=== PATIENT | female | born 1930 | race Caucasian/White ===

== ENCOUNTER 2016-12-18 10:02 | Inpatient (IN) | payer MEDICARE ==
--- NOTE | 2016-12-18 10:54 | EDM.PDOC ---
ED HPI GENERAL MEDICAL PROBLEM - General Chief Complaint: Respiratory Problem Stated Complaint: SHORTNESS OF BREATH Time Seen by Provider: 12/18/16 10:54 Source of Information: Reports: Patient History Limitations: Reports: No Limitations - History of Present Illness INITIAL COMMENTS - FREE TEXT/NARRATIVE: pt arrived appearing very pale and sob. She had a difficult nite and couldn,t rest because of the sob. She has not had chest pain. She has a history of recurrent pneumonia and does not always spike a temp when she has the pneumonia. Onset: Gradual, Other (over the last 2 days. ) Duration: Hour(s): Location: Reports: Chest Associated Symptoms: Reports: Cough, Shortness of Breath, Weakness Denies Pain Score (Numeric/FACES): 0 - Related Data Allergies Allergy/AdvReac Type Severity Reaction Status Date / Time atorvastatin [From Lipitor] Allergy Muscle Verified 12/18/16 10:16 Aches dorzolamide [From Cosopt] Allergy Rash Verified 12/18/16 10:14 flurbiprofen Allergy Cannot Verified 12/18/16 10:16 Remember timolol [From Cosopt] Allergy Rash Verified 12/18/16 10:14 Home Meds: Home Meds Acetaminophen 500 mg PO Q6H PRN 12/18/16 [History] Acetaminophen with Codeine [Tylenol with Codeine #3 Tablet] 1 each PO QID PRN [History] Albuterol [Proventil HFA] 2 puff INH Q4H PRN 12/18/16 [History] Amitriptyline HCl 100 mg PO BEDTIME 12/18/16 [History] Antiox#10/Om3/DHA/EPA/Lut/Zeax [I-Caps with Lutein-Rupert 3 SFG] 2 each PO BID [History] Brimonidine [Alphagan 0.2% Ophth Soln] 1 drop EYELF BID 12/18/16 [History] Ca Carb & Gluc/Mag Ox & Gluc [Calcium Magnesium Caplet] 1 tab PO DAILY 12/18/16 [History] Carboxymethylcellulos/Glycerin [Refresh Optive Gel Eye Drops] 1 drop OP DAILY PRN 12/18/16 [History] Cholecalciferol (Vitamin D3) [Vitamin D3] 2,000 unit PO DAILY 12/18/16 [History] Docusate Sodium 300 mg PO DAILY 12/18/16 [History] Furosemide 20 mg PO DAILY 12/18/16 [History] Gluc Tan/Msm/Magnesium/Vit C [Glucosamine Complex-MSM] 1 each PO DAILY 12/18/16 [ History] Hypromellose [Pure & Gentle Eye Drops] 1 drop OP QID PRN 12/18/16 [History] Latanoprost [Xalatan 0.005% Ophth Soln] 1 drop EYELF BEDTIME 12/18/16 [History] Levothyroxine 75 mcg PO ACBREAKFAST 12/18/16 [History] Lidocaine 4% [Xylocaine 4% Top Soln] 1 applic TOP Q8H PRN 12/18/16 [History] Lisinopril 10 mg PO DAILY 12/18/16 [History] Metoprolol Tartrate 25 mg PO BID 12/18/16 [History] Truong/Polymyx B Sulf/Dexameth [Nqzdxj-Agrpq-Rofndrw Eye Ointm] 1 applic OP BEDTIME 12/18/16 [History] Omeprazole 40 mg PO DAILY 12/18/16 [History] Salmeterol Xinafoate [Serevent Diskus] 1 puff INH BID 12/18/16 [History] Timolol Maleate [Timoptic 0.25%] 1 drop EYELF BID 12/18/16 [History] Warfarin [Coumadin] 2.5 mg PO ASDIRECTED 12/18/16 [History] Warfarin [Coumadin] 5 mg PO ASDIRECTED 12/18/16 [History] hydrOXYzine HCl [Atarax] 25 mg PO Q8H 12/18/16 [History] Past Medical History HEENT History: Reports: Impaired Vision, Other (See Below) 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 Cardiovascular History: Reports: Afib, CAD, Heart Failure, Hypertension, MD Respiratory History: Reports: COPD Gastrointestinal History: Reports: GERD, Other (See Below) Other Gastrointestinal History: umbilica hernia Genitourinary History: Reports: Chronic Renal Insuffiency, UTI, Recurrent [employer] History: Reports: , Spontaneous Musculoskeletal History: Reports: Osteoarthritis Neurological History: Reports: TIA Psychiatric History: Reports: Panic Attack Endocrine/Metabolic History: Reports: Hypothyroidism - Infectious Disease History Infectious Disease History: Reports: Measles, Shingles - Past Surgical History HEENT Surgical History: Reports: Cataract Surgery GI Surgical History: Reports: Appendectomy Musculoskeletal Surgical History: Reports: Hip Replacement Social & Family History - Tobacco Use Smoking Status *Q: Former Smoker Years of Tobacco use: 50 Packs/Tins Daily: 1 Used Tobacco, but Quit: Yes Month Tobacco Last Used: August Second Hand Smoke Exposure: No - Caffeine Use Caffeine Use: Reports: Coffee - Recreational Drug Use Recreational Drug Use: No ED ROS GENERAL - Review of Systems Review Of Systems: See Below Constitutional: Reports: Malaise, Fatigue, Other ( sob) HEENT: Reports: No Symptoms Respiratory: Reports: Shortness of Breath Cardiovascular: Reports: No Symptoms Endocrine: Reports: No Symptoms GI/Abdominal: Reports: No Symptoms : Reports: No Symptoms Musculoskeletal: Reports: No Symptoms Skin: Reports: No Symptoms ED EXAM, GENERAL - Physical Exam Exam: See Below Free Text/Narrative:: pt arrived with increased sob and feeling very weak. Exam Limited By: No Limitations General Appearance: Alert, Moderate Distress Ears: Normal TMs Nose: Normal Inspection Throat/Mouth: Normal Inspection Head: Atraumatic Neck: Normal Inspection Respiratory/Chest: Decreased Breath Sounds, Rales Cardiovascular: Irregularly Irregular, Other (history of atrial fib) GI/Abdominal: Soft, Other (pt seemes a little distended. She did take a laxative today but she has not had a bm since or Friday. She may have some fluid in the abdoman. She never swells in her ankles. ) (Female) Exam: Deferred Rectal (Female) Exam: Deferred Back Exam: Normal Inspection Extremities: Other ( varicosities but no edema. ) Neurological: Alert, Oriented, Normal Cognition Course - Vital Signs Last Recorded V/S: Last Vital Signs Temp 36.6 C 12/21/16 07:43 Pulse 72 12/21/16 07:43 Resp 16 12/21/16 07:43 BP 110/45 L 12/21/16 07:43 Pulse Ox 97 12/21/16 07:43 - Orders/Labs/Meds Orders: Medication Orders Acetaminophen (Tylenol) 650 mg PO Q4H PRN PRN Reason: Pain (Mild 1-3)/fever Albuterol (Proventil Neb Soln) 2.5 mg NEB Q4H PRN PRN Reason: Shortness Of Breath/wheezing Albuterol/Ipratropium (Duoneb 3.0-0.5 Mg/3 Ml) 3 ml NEB QIDRT [facility] Last Admin: 12/21/16 07:22 Dose: 3 ml Admin: 12/20/16 20:18 Dose: 3 ml Admin: 12/20/16 14:42 Dose: 3 ml Admin: 12/20/16 12:22 Dose: 3 ml Admin: 12/20/16 07:23 Dose: 3 ml Admin: 12/19/16 21:24 Dose: 3 ml Admin: 12/19/16 14:21 Dose: 3 ml Admin: 12/19/16 10:59 Dose: 3 ml Admin: 12/19/16 07:25 Dose: 3 ml Admin: 12/18/16 21:17 Dose: 3 ml Admin: 12/18/16 16:40 Dose: 3 ml Amitriptyline HCl (Elavil) 100 mg PO BEDTIME [facility] Last Admin: 12/20/16 20:18 Dose: 100 mg Admin: 12/19/16 21:24 Dose: 100 mg Admin: 12/18/16 21:19 Dose: 100 mg Amoxicillin/Clavulanate Potassium (Augmentin 875 Mg/125 Mg) 1 tab PO BID [facility] Last Admin: 12/20/16 20:17 Dose: 1 tab Admin: 12/20/16 12:48 Dose: 1 tab Arformoterol Tartrate (Brovana) 15 mcg INH BIDRT [facility] Last Admin: 12/21/16 07:22 Dose: 15 mcg Admin: 12/20/16 20:17 Dose: 15 mcg Admin: 12/20/16 07:24 Dose: 15 mcg Admin: 12/19/16 21:24 Dose: 15 mcg Admin: 12/19/16 07:25 Dose: 15 mcg Admin: 12/18/16 21:19 Dose: 15 mcg Artificial Tears (Natural Balance Tears) 0 ml EYEBOTH QID PRN PRN Reason: Dry Eyes Brimonidine Tartrate (Alphagan 0.2% Ophth Soln) 0 ml EYELF BID [facility] Last Admin: 12/20/16 20:17 Dose: 1 drop Docusate Sodium (Colace) 300 mg PO DAILY [facility] Last Admin: 12/20/16 09:10 Dose: 300 mg Admin: 12/19/16 08:50 Dose: 300 mg Furosemide (Lasix) 40 mg PO DAILY [facility] Last Admin: 12/20/16 09:10 Dose: 40 mg Admin: 12/19/16 11:29 Dose: 40 mg Hydroxyzine HCl (Atarax) 25 mg PO Q8H [facility] Last Admin: 12/20/16 23:41 Dose: 25 mg Admin: 12/20/16 17:36 Dose: 25 mg Admin: 12/20/16 07:30 Dose: 25 mg Admin: 12/20/16 00:38 Dose: 25 mg Admin: 12/19/16 16:00 Dose: 25 mg Admin: 12/19/16 08:49 Dose: 25 mg Admin: 12/18/16 23:11 Dose: 25 mg Admin: 12/18/16 15:56 Dose: 25 mg Lactobacillus Rhamnosus (Culturelle) 2 cap PO BID [facility] Last Admin: 12/20/16 20:18 Dose: 2 cap Admin: 12/20/16 12:48 Dose: 2 cap Latanoprost (Xalatan 0.005% Ophth Soln) 0 ml EYELF BEDTIME [facility] Last Admin: 12/20/16 20:19 Dose: 1 drop Admin: 12/19/16 21:42 Dose: 1 drop Admin: 12/18/16 21:33 Dose: 1 drop Levothyroxine Sodium (Levothyroxine) 75 mcg PO ACBREAKFAST [facility] Last Admin: 12/20/16 07:30 Dose: 75 mcg Admin: 12/19/16 07:17 Dose: 75 mcg Lisinopril (Prinivil) 10 mg PO DAILY [facility] Last Admin: 12/20/16 09:11 Dose: 10 mg Admin: 12/19/16 08:51 Dose: 10 mg Magnesium Hydroxide (Milk Of Magnesia) 30 ml PO Q12H PRN PRN Reason: Constipation Metoprolol Tartrate (Lopressor) 25 mg PO BID [facility] Last Admin: 12/20/16 20:19 Dose: 25 mg Admin: 12/20/16 09:10 Dose: 25 mg Admin: 12/19/16 21:24 Dose: 25 mg Admin: 12/19/16 08:51 Dose: 25 mg Admin: 12/18/16 21:27 Dose: 25 mg Neomycin/Polymyxin/Dexamethasone (Maxitrol Ophth Oint) 0 gm EYEBOTH BEDTIME [facility] Last Admin: 09/22/17 20:18 Dose: 1 applic Admin: 12/19/16 21:27 Dose: 1 applic Admin: 12/18/16 21:36 Dose: 1 applic Ondansetron HCl (Zofran) 4 mg IV Q4H PRN PRN Reason: Nausea/Vomiting Oxycodone HCl (Oxycodone) 5 mg PO Q4H PRN PRN Reason: Pain (moderate 4-6) Pantoprazole Sodium (Protonix) 40 mg PO ACBREAKFAST [facility] Last Admin: 12/20/16 07:30 Dose: 40 mg Admin: 12/19/16 07:17 Dose: 40 mg Polyethylene Glycol (Miralax) 17 gm PO DAILY PRN PRN Reason: Constipation Sodium Chloride (Saline Flush) 10 ml FLUSH ASDIRECTED PRN PRN Reason: Keep Vein Open Timolol Maleate (Timoptic 0.25% Ophth Soln) 0 ml EYELF BID [facility] Last Admin: 12/20/16 20:18 Dose: 1 drop Admin: 12/20/16 09:11 Dose: 1 drop Admin: 12/19/16 21:43 Dose: 1 drop Admin: 12/19/16 08:51 Dose: 1 drop Admin: 12/18/16 21:24 Dose: 1 drop Labs: Laboratory Tests 12/18/16 12/18/16 12/18/16 Range/Units 10:58 10:59 10:59 WBC 7.3 (4.5-11.0) K/uL RBC 3.52 (3.30-5.50) M/uL Hgb 10.5 L (12.0-15.0) g/dL Hct 33.1 L (36.0-48.0) % MCV 94 (80-98) fL MCH 30 (27-31) pg MCHC 32 (32-36) % Plt Count 264 (150-400) K/uL Neut % (Auto) 67 H (36-66) % Lymph % (Auto) 17 L (24-44) % Ward % (Auto) 10 H (2-6) % Eos % (Auto) 6 H (2-4) % Baso % (Auto) 1 (0-1) % PT (9.5-12.0) sec INR (0.80-1.20) Sodium 139 L (140-148) mmol/L Potassium 3.9 (3.6-5.2) mmol/L Chloride 100 (100-108) mmol/L Carbon Dioxide 28 (21-32) mmol/L Anion Gap 14.9 H (5.0-14.0) mmol/L BUN 37 H (7-18) mg/dL Creatinine 1.8 H (0.6-1.0) mg/dL Est Cr Clr Drug Dosing 17.09 mL/min Estimated GFR (MDRD) 27 L (>60) Glucose 124 H (74-106) mg/dL Lactic Acid (0.4-2.0) mmol/L Calcium 8.6 (8.5-10.1) mg/dL Iron 50 (50-170) ug/dL TIBC 248 L (250-450) ug/dl % Saturation 20 (20-55) % Total Bilirubin 0.8 (0.2-1.0) mg/dL AST 22 (15-37) U/L ALT 29 (12-78) U/L Alkaline Phosphatase 78 (46-116) U/L Troponin I (0.000-0.056) ng/mL C-Reactive Protein (0.0-0.3) mg/dL NT-Pro-B Natriuret Pep 32510 H (5-450) pg/mL Total Protein 7.6 (6.4-8.2) g/dL Albumin 3.2 L (3.4-5.0) g/dL Globulin 4.4 H (2.3-3.5) g/dL Albumin/Globulin Ratio 0.7 L (1.2-2.2) Urine Color Urine Appearance Urine pH (4.5-8.0) Ur Specific [place] (1.008-1.030) Urine Protein (NEGATIVE) mg/dL Urine Glucose (UA) (NEGATIVE) mg/dL Urine Ketones (NEGATIVE) mg/dL Urine Occult Blood (NEGATIVE) Urine Nitrite (NEGATIVE) Urine Bilirubin (NEGATIVE) Urine Urobilinogen (NORMAL) mg/dL Ur Leukocyte Esterase (NEGATIVE) Urine RBC (0-5) Urine WBC (0-5) Ur Epithelial Cells Amorphous Sediment Urine Bacteria Urine Mucus 12/18/16 12/18/16 12/18/16 Range/Units 10:59 11:18 11:24 WBC (4.5-11.0) K/uL RBC (3.30-5.50) M/uL Hgb (12.0-15.0) g/dL Hct (36.0-48.0) % MCV (80-98) fL MCH (27-31) pg MCHC (32-36) % Plt Count (150-400) K/uL Neut % (Auto) (36-66) % Lymph % (Auto) (24-44) % Ward % (Auto) (2-6) % Eos % (Auto) (2-4) % Baso % (Auto) (0-1) % PT 22.7 H (9.5-12.0) sec INR 2.06 H (0.80-1.20) Sodium (140-148) mmol/L Potassium (3.6-5.2) mmol/L Chloride (100-108) mmol/L Carbon Dioxide (21-32) mmol/L Anion Gap (5.0-14.0) mmol/L BUN (7-18) mg/dL Creatinine (0.6-1.0) mg/dL Est Cr Clr Drug Dosing mL/min Estimated GFR (MDRD) (>60) Glucose (74-106) mg/dL Lactic Acid (0.4-2.0) mmol/L Calcium (8.5-10.1) mg/dL Iron (50-170) ug/dL TIBC (250-450) ug/dl % Saturation (20-55) % Total Bilirubin (0.2-1.0) mg/dL AST (15-37) U/L ALT (12-78) U/L Alkaline Phosphatase (46-116) U/L Troponin I (0.000-0.056) ng/mL C-Reactive Protein 9.29 H (0.0-0.3) mg/dL NT-Pro-B Natriuret Pep (5-450) pg/mL Total Protein (6.4-8.2) g/dL Albumin (3.4-5.0) g/dL Globulin (2.3-3.5) g/dL Albumin/Globulin Ratio (1.2-2.2) Urine Color Yellow Urine Appearance Cloudy Urine pH 6.0 (4.5-8.0) Ur Specific [place] 1.010 (1.008-1.030) Urine Protein Negative (NEGATIVE) mg/dL Urine Glucose (UA) Normal (NEGATIVE) mg/dL Urine Ketones Negative (NEGATIVE) mg/dL Urine Occult Blood Negative (NEGATIVE) Urine Nitrite Negative (NEGATIVE) Urine Bilirubin Negative (NEGATIVE) Urine Urobilinogen Normal (NORMAL) mg/dL Ur Leukocyte Esterase Small (NEGATIVE) Urine RBC 0-5 (0-5) Urine WBC 10-20 H (0-5) Ur Epithelial Cells Rare Amorphous Sediment Not seen Urine Bacteria Many Urine Mucus Not seen 12/18/16 12/18/16 Range/Units 11:50 12:24 WBC (4.5-11.0) K/uL RBC (3.30-5.50) M/uL Hgb (12.0-15.0) g/dL Hct (36.0-48.0) % MCV (80-98) fL MCH (27-31) pg MCHC (32-36) % Plt Count (150-400) K/uL Neut % (Auto) (36-66) % Lymph % (Auto) (24-44) % Ward % (Auto) (2-6) % Eos % (Auto) (2-4) % Baso % (Auto) (0-1) % PT (9.5-12.0) sec INR (0.80-1.20) Sodium (140-148) mmol/L Potassium (3.6-5.2) mmol/L Chloride (100-108) mmol/L Carbon Dioxide (21-32) mmol/L Anion Gap (5.0-14.0) mmol/L BUN (7-18) mg/dL Creatinine (0.6-1.0) mg/dL Est Cr Clr Drug Dosing mL/min Estimated GFR (MDRD) (>60) Glucose (74-106) mg/dL Lactic Acid 1.4 (0.4-2.0) mmol/L Calcium (8.5-10.1) mg/dL Iron (50-170) ug/dL TIBC (250-450) ug/dl % Saturation (20-55) % Total Bilirubin (0.2-1.0) mg/dL AST (15-37) U/L ALT (12-78) U/L Alkaline Phosphatase (46-116) U/L Troponin I < 0.017 (0.000-0.056) ng/mL C-Reactive Protein (0.0-0.3) mg/dL NT-Pro-B Natriuret Pep (5-450) pg/mL Total Protein (6.4-8.2) g/dL Albumin (3.4-5.0) g/dL Globulin (2.3-3.5) g/dL Albumin/Globulin Ratio (1.2-2.2) Urine Color Urine Appearance Urine pH (4.5-8.0) Ur Specific [place] (1.008-1.030) Urine Protein (NEGATIVE) mg/dL Urine Glucose (UA) (NEGATIVE) mg/dL Urine Ketones (NEGATIVE) mg/dL Urine Occult Blood (NEGATIVE) Urine Nitrite (NEGATIVE) Urine Bilirubin (NEGATIVE) Urine Urobilinogen (NORMAL) mg/dL Ur Leukocyte Esterase (NEGATIVE) Urine RBC (0-5) Urine WBC (0-5) Ur Epithelial Cells Amorphous Sediment Urine Bacteria Urine Mucus Meds: Medications Generic Name Dose Route Start Last Admin Trade Name Freq PRN Reason Stop Dose Admin Acetaminophen 650 mg 12/18/16 15:07 Tylenol PO Q4H PRN Pain (Mild 1-3)/fever Albuterol 2.5 mg 12/18/16 15:07 Proventil Neb Soln NEB Q4H PRN Shortness Of Breath/wheezing Albuterol/Ipratropium 3 ml 12/18/16 16:00 12/21/16 07:22 Duoneb 3.0-0.5 Mg/3 Ml NEB 3 ml QIDRT JOSE CARLOS Administration Amitriptyline HCl 100 mg 12/18/16 21:00 12/20/16 20:18 Elavil PO 100 mg BEDTIME JOSE CARLOS Administration Amoxicillin/Clavulanate Potassium 1 tab 12/20/16 10:45 12/20/16 20:17 Augmentin 875 Mg/125 Mg PO 1 tab BID JOSE CARLOS Administration Arformoterol Tartrate 15 mcg 12/18/16 21:00 12/21/16 07:22 Brovana INH 15 mcg BIDRT JOSE CARLOS Administration Artificial Tears 0 ml 12/18/16 15:07 Natural Balance Tears EYEBOTH QID PRN Dry Eyes Brimonidine Tartrate 0 ml 12/20/16 21:00 12/20/16 20:17 Alphagan 0.2% Ophth Soln EYELF 1 drop BID JOSE CARLOS Administration Docusate Sodium 300 mg 12/19/16 09:00 12/20/16 09:10 Colace PO 300 mg DAILY JOSE CARLOS Administration Furosemide 40 mg 12/19/16 11:00 12/20/16 09:10 Lasix PO 40 mg DAILY JOSE CARLOS Administration Hydroxyzine HCl 25 mg 12/18/16 16:00 12/20/16 23:41 Atarax PO 25 mg Q8H JOSE CARLOS Administration Lactobacillus Rhamnosus 2 cap 12/20/16 10:45 12/20/16 20:18 Culturelle PO 2 cap BID JOSE CARLOS Administration Latanoprost 0 ml 12/18/16 21:00 12/20/16 20:19 Xalatan 0.005% Ophth Soln EYELF 1 drop BEDTIME JOSE CARLOS Administration Levothyroxine Sodium 75 mcg 12/19/16 07:30 12/20/16 07:30 Levothyroxine PO 75 mcg ACBREAKFAST JOSE CARLOS Administration Lisinopril 10 mg 12/19/16 09:00 12/20/16 09:11 Prinivil PO 10 mg DAILY JOSE CARLOS Administration Magnesium Hydroxide 30 ml 12/18/16 15:07 Milk Of Magnesia PO Q12H PRN Constipation Metoprolol Tartrate 25 mg 12/18/16 21:00 12/20/16 20:19 Lopressor PO 25 mg BID JOSE CARLOS Administration Neomycin/Polymyxin/Dexamethasone 0 gm 12/18/16 21:00 12/20/16 20:18 Maxitrol Ophth Oint EYEBOTH 1 applic BEDTIME JOSE CARLOS Administration Ondansetron HCl 4 mg 12/18/16 15:07 Zofran IV Q4H PRN Nausea/Vomiting Oxycodone HCl 5 mg 12/18/16 15:07 Oxycodone PO Q4H PRN Pain (moderate 4-6) Pantoprazole Sodium 40 mg 12/19/16 07:30 12/20/16 07:30 Protonix PO 40 mg ACBREAKFAST JOSE CARLOS Administration Polyethylene Glycol 17 gm 12/18/16 15:07 Miralax PO DAILY PRN Constipation Sodium Chloride 10 ml 12/18/16 15:07 Saline Flush FLUSH ASDIRECTED PRN Keep Vein Open Timolol Maleate 0 ml 12/18/16 21:00 12/20/16 20:18 Timoptic 0.25% Ophth Soln EYELF 1 drop BID JOSE CARLOS Administration Discontinued Medications Generic Name Dose Route Start Last Admin Trade Name Freq PRN Reason Stop Dose Admin Brimonidine Tartrate 0 ml 12/18/16 15:07 12/20/16 17:54 Alphagan 0.2% Ophth Soln EYELF Not Given TID JOSE CARLOS Ceftriaxone Sodium Confirm 12/18/16 13:18 12/18/16 13:28 Rocephin Administered 12/18/16 13:19 Not Given Dose 1 gm .ROUTE .STK-MED ONE Furosemide 60 mg 12/18/16 11:25 12/18/16 19:08 Lasix IVPUSH 12/18/16 11:26 Not Given ONETIME ONE Furosemide Confirm 12/18/16 11:48 12/18/16 12:02 Lasix Administered 12/18/16 11:49 Not Given Dose 40 mg .ROUTE .STK-MED ONE Furosemide 60 mg 12/18/16 11:49 12/18/16 11:57 Lasix IVPUSH 12/18/16 11:50 60 mg ONETIME ONE Administration Furosemide 40 mg 12/20/16 18:00 12/20/16 17:32 Lasix IVPUSH 12/20/16 18:01 40 mg NOW ONE Administration Ceftriaxone Sodium 1 gm/ 50 mls @ 100 mls/hr 12/18/16 12:45 12/19/16 12:37 Sodium Chloride IV 100 mls/hr Q24H JOSE CARLOS Administration Sodium Chloride Confirm 12/18/16 13:20 12/18/16 13:28 Normal Saline Administered 12/18/16 13:21 Not Given Dose 50 mls @ as directed .ROUTE .STK-MED ONE Azithromycin 500 mg/ Sodium 250 mls @ 250 mls/hr 12/18/16 16:00 12/19/16 16: 00 Chloride IV 250 mls/hr Q24H JOSE CARLOS Administration Potassium Chloride 40 meq 12/19/16 09:30 12/19/16 10:09 Klor-Con M20 PO 12/19/16 09:31 40 meq ONETIME ONE Administration Sodium Chloride 10 ml 12/18/16 11:47 12/18/16 14:29 Saline Flush FLUSH 10 ml ASDIRECTED PRN Administration Keep Vein Open Warfarin Sodium 5 mg 12/19/16 13:00 12/19/16 12:54 Coumadin PO 12/19/16 13:01 5 mg ONETIME ONE Administration Warfarin Sodium 5 mg 12/20/16 17:00 12/20/16 17:32 Coumadin PO 12/20/16 17:01 5 mg ONETIME ONE Administration - Re-Assessments/Exams Free Text/Narrative Re-Assessment/Exam: 12/18/16 12:30 pt was given lasix 60mg iv. She did start to diurese 12/21/16 07:50 Departure - Departure Time of Disposition: 07:45 Disposition: Admitted As Inpatient 64 Condition: Fair Clinical Impression: Fluid overload, UTI (urinary tract infection) - Discharge Information
--- NOTE | 2016-12-18 11:10 | CR ---
Chest 2V INDICATION: sob FINDINGS: Heart size minimally enlarged. Pulmonary vascularity at the upper limits of normal. [place] tting of the right hemidiaphragm consistent with focal infiltrate in the right lung base. Left lung c lear. Benign calcified granuloma left midlung. Recommend follow-up chest x-ray in 4-6 weeks.
[2016-12-18] MEDS ORDERED: Furosemide 40 MG/4 ML VIAL IVPUSH ONE ×2 (11:25→11:49)
[2016-12-18] MEDS ORDERED: Furosemide 40 MG/4 ML VIAL ONE (11:48)
[2016-12-18] MEDS: Sodium Chloride 0.9% 10 ML Syringe FLUSH PRN ×2 (12:06→14:29)
--- NOTE | 2016-12-18 13:15 | PCM.HP ---
H&P History of Present Illness - General Date of Service: 12/18/16 Admit Problem/Dx: Admission Diagnosis/Problem Admission Diagnosis/Problem CHF, Congestive heart failure Source of Information: Patient, Family, Provider, RN Notes Reviewed History Limitations: Reports: No Limitations - History of Present Illness Initial Comments - Free Text/Narative: Ms. Hutchinson is an 86-year-old woman who is admitted through the emergency department with increased shortness of breath secondary to underlying congestive heart failure as well as COPD and right lung pneumonia. She is up visiting this area from [place], over the last few days his had increased shortness of breath associated with PND and orthopnea. She denies significant increase in peripheral edema and has had no symptoms of chest pain or pressure. Thus far there is been no significant cough, fever, chills, or sweats. She has been told that her heart function is diminished but she is not aware of any specific numbers assigned to that function. Denies Pain Score (Numeric/FACES): 0 - Related Data Allergies/Adverse Reactions: Allergies Allergy/AdvReac Type Severity Reaction Status Date / Time atorvastatin [From Lipitor] Allergy Muscle Verified 12/18/16 10:16 Aches dorzolamide [From Cosopt] Allergy Rash Verified 12/18/16 10:14 flurbiprofen Allergy Cannot Verified 12/18/16 10:16 Remember timolol [From Cosopt] Allergy Rash Verified 12/18/16 10:14 Home Medications: Home Meds Acetaminophen 500 mg PO Q6H PRN 12/18/16 [History] Acetaminophen with Codeine [Tylenol with Codeine #3 Tablet] 1 each PO QID PRN [History] Albuterol [Proventil HFA] 2 puff INH Q4H PRN 12/18/16 [History] Amitriptyline HCl 100 mg PO BEDTIME 12/18/16 [History] Antiox#10/Om3/DHA/EPA/Lut/Zeax [I-Caps with Lutein-Sarcoxie 3 SFG] 2 each PO BID [History] Brimonidine [Alphagan 0.2% Ophth Soln] 1 drop EYELF TID 12/18/16 [History] Ca Carb & Gluc/Mag Ox & Gluc [Calcium Magnesium Caplet] 1 tab PO DAILY 12/18/16 [History] Carboxymethylcellulos/Glycerin [Refresh Optive Gel Eye Drops] 1 drop OP DAILY PRN 12/18/16 [History] Cholecalciferol (Vitamin D3) [Vitamin D3] 2,000 unit PO DAILY 12/18/16 [History] Docusate Sodium 300 mg PO DAILY 12/18/16 [History] Furosemide 20 mg PO DAILY 12/18/16 [History] Gluc Tan/Msm/Magnesium/Vit C [Glucosamine Complex-MSM] 1 each PO DAILY 12/18/16 [ History] Hypromellose [Pure & Gentle Eye Drops] 1 drop OP QID PRN 12/18/16 [History] Latanoprost [Xalatan 0.005% Ophth Soln] 1 drop EYELF BEDTIME 12/18/16 [History] Levothyroxine 75 mcg PO ACBREAKFAST 12/18/16 [History] Lidocaine 4% [Xylocaine 4% Top Soln] 1 applic TOP Q8H PRN 12/18/16 [History] Lisinopril 10 mg PO DAILY 12/18/16 [History] Metoprolol Tartrate 25 mg PO BID 12/18/16 [History] Truong/Polymyx B Sulf/Dexameth [Khkolf-Jrrvu-Ihejdul Eye Ointm] 1 applic OP BEDTIME 12/18/16 [History] Omeprazole 40 mg PO DAILY 12/18/16 [History] Salmeterol Xinafoate [Serevent Diskus] 1 puff INH BID 12/18/16 [History] Timolol Maleate [Timoptic 0.25%] 1 drop EYELF BID 12/18/16 [History] Warfarin [Coumadin] 2.5 mg PO ASDIRECTED 12/18/16 [History] Warfarin [Coumadin] 5 mg PO ASDIRECTED 12/18/16 [History] hydrOXYzine HCl [Atarax] 25 mg PO Q8H 12/18/16 [History] Past Medical History HEENT History: Reports: Impaired Vision, Other (See Below) 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 Cardiovascular History: Reports: Afib, CAD, Heart Failure, Hypertension, [place] Respiratory History: Reports: COPD Gastrointestinal History: Reports: GERD, Other (See Below) Other Gastrointestinal History: umbilica hernia Genitourinary History: Reports: Chronic Renal Insuffiency, UTI, Recurrent [employer] History: Reports: , Spontaneous Musculoskeletal History: Reports: Osteoarthritis Neurological History: Reports: TIA Psychiatric History: Reports: Panic Attack Endocrine/Metabolic History: Reports: Hypothyroidism - Infectious Disease History Infectious Disease History: Reports: Measles, Shingles - Past Surgical History HEENT Surgical History: Reports: Cataract Surgery GI Surgical History: Reports: Appendectomy Musculoskeletal Surgical History: Reports: Hip Replacement Social & Family History - Tobacco Use Smoking Status *Q: Former Smoker Years of Tobacco use: 50 Packs/Tins Daily: 1 Used Tobacco, but Quit: Yes Month Tobacco Last Used: August Second Hand Smoke Exposure: No - Caffeine Use Caffeine Use: Reports: Coffee - Recreational Drug Use Recreational Drug Use: No H&P Review of Systems - Review of Systems: Review Of Systems: See Below General: Reports: Weakness, Decreased Appetite. Denies: Fever, Chills HEENT: Reports: No Symptoms Pulmonary: Reports: Shortness of Breath. Denies: Wheezing, Pleuritic Chest Pain , Cough, Sputum, Hemoptysis Cardiovascular: Reports: Dyspnea on Exertion, Orthopnea, PND. Denies: Chest Pain, Palpitations, Edema, Lightheadedness Gastrointestinal: Reports: No Symptoms Genitourinary: Reports: No Symptoms Musculoskeletal: Reports: No Symptoms Skin: Reports: No Symptoms Psychiatric: Reports: No Symptoms Neurological: Reports: No Symptoms Hematologic/Lymphatic: Reports: No Symptoms Immunologic: Reports: No Symptoms Exam - Exam Exam: See Below - Vital Signs Vital Signs: Last Vital Signs Temp 98.1 F 12/18/16 12:01 Pulse 75 12/18/16 12:01 Resp 18 12/18/16 12:01 BP 153/86 H 12/18/16 12:02 Pulse Ox 99 12/18/16 12:01 Weight: 161 lb 9.581 oz - Exam Quality Assessment: Supplemental Oxygen, DVT Prophylaxis General: Alert, Oriented, Cooperative, Mild Distress HEENT: Conjunctiva Clear, Hearing Intact, Mucosa Moist & Lott, Normal Nasal Septum, Posterior Pharynx Clear, Pupils Equal Neck: Supple, Trachea Midline, +2 Carotid Pulse wo Bruit Lungs: Decreased Breath Sounds. No: Rales, Rhonchi, Wheezing Cardiovascular: Regular Rate, Regular Rhythm, Normal S1, Normal S2. No: Systolic Murmur, Diastolic Murmur GI/Abdominal Exam: Normal Bowel Sounds, Soft, Non-Tender, No Organomegaly, No Distention Back Exam: Normal Inspection, Full Range of Motion Extremities: Non-Tender, No Pedal Edema Skin: Warm, Dry, Intact Neurological: Cranial Nerves Intact, Strength Equal Bilateral, Normal Speech, Normal Tone, Sensation Intact. No: Focal Deficit Neuro Extensive - Mental Status: Alert, Oriented x3, Normal Mood/Affect, Normal Cognition, Memory Intact - Patient Data Lab Results Last 24 hrs: Laboratory Results - last 24 hr 12/18/16 12/18/16 12/18/16 Range/Units 10:58 10:59 10:59 WBC 7.3 (4.5-11.0) K/uL RBC 3.52 (3.30-5.50) M/uL Hgb 10.5 L (12.0-15.0) g/dL Hct 33.1 L (36.0-48.0) % MCV 94 (80-98) fL MCH 30 (27-31) pg MCHC 32 (32-36) % Plt Count 264 (150-400) K/uL Neut % (Auto) 67 H (36-66) % Lymph % (Auto) 17 L (24-44) % Tompkins % (Auto) 10 H (2-6) % Eos % (Auto) 6 H (2-4) % Baso % (Auto) 1 (0-1) % PT (9.5-12.0) sec INR (0.80-1.20) Sodium 139 L (140-148) mmol/L Potassium 3.9 (3.6-5.2) mmol/L Chloride 100 (100-108) mmol/L Carbon Dioxide 28 (21-32) mmol/L Anion Gap 14.9 H (5.0-14.0) mmol/L BUN 37 H (7-18) mg/dL Creatinine 1.8 H (0.6-1.0) mg/dL Est Cr Clr Drug Dosing 17.09 mL/min Estimated GFR (MDRD) 27 L (>60) Glucose 124 H (74-106) mg/dL Lactic Acid (0.4-2.0) mmol/L Calcium 8.6 (8.5-10.1) mg/dL Iron 50 (50-170) ug/dL TIBC 248 L (250-450) ug/dl % Saturation 20 (20-55) % Total Bilirubin 0.8 (0.2-1.0) mg/dL AST 22 (15-37) U/L ALT 29 (12-78) U/L Alkaline Phosphatase 78 (46-116) U/L Troponin I (0.000-0.056) ng/mL C-Reactive Protein (0.0-0.3) mg/dL NT-Pro-B Natriuret Pep 93361 H (5-450) pg/mL Total Protein 7.6 (6.4-8.2) g/dL Albumin 3.2 L (3.4-5.0) g/dL Globulin 4.4 H (2.3-3.5) g/dL Albumin/Globulin Ratio 0.7 L (1.2-2.2) Urine Color Urine Appearance Urine pH (4.5-8.0) Ur Specific Cent[place] (1.008-1.030) Urine Protein (NEGATIVE) mg/dL Urine Glucose (UA) (NEGATIVE) mg/dL Urine Ketones (NEGATIVE) mg/dL Urine Occult Blood (NEGATIVE) Urine Nitrite (NEGATIVE) Urine Bilirubin (NEGATIVE) Urine Urobilinogen (NORMAL) mg/dL Ur Leukocyte Esterase (NEGATIVE) Urine RBC (0-5) Urine WBC (0-5) Ur Epithelial Cells Amorphous Sediment Urine Bacteria Urine Mucus 12/18/16 12/18/16 12/18/16 Range/Units 10:59 11:18 11:24 WBC (4.5-11.0) K/uL RBC (3.30-5.50) M/uL Hgb (12.0-15.0) g/dL Hct (36.0-48.0) % MCV (80-98) fL MCH (27-31) pg MCHC (32-36) % Plt Count (150-400) K/uL Neut % (Auto) (36-66) % Lymph % (Auto) (24-44) % Tompkins % (Auto) (2-6) % Eos % (Auto) (2-4) % Baso % (Auto) (0-1) % PT 22.7 H (9.5-12.0) sec INR 2.06 H (0.80-1.20) Sodium (140-148) mmol/L Potassium (3.6-5.2) mmol/L Chloride (100-108) mmol/L Carbon Dioxide (21-32) mmol/L Anion Gap (5.0-14.0) mmol/L BUN (7-18) mg/dL Creatinine (0.6-1.0) mg/dL Est Cr Clr Drug Dosing mL/min Estimated GFR (MDRD) (>60) Glucose (74-106) mg/dL Lactic Acid (0.4-2.0) mmol/L Calcium (8.5-10.1) mg/dL Iron (50-170) ug/dL TIBC (250-450) ug/dl % Saturation (20-55) % Total Bilirubin (0.2-1.0) mg/dL AST (15-37) U/L ALT (12-78) U/L Alkaline Phosphatase (46-116) U/L Troponin I (0.000-0.056) ng/mL C-Reactive Protein 9.29 H (0.0-0.3) mg/dL NT-Pro-B Natriuret Pep (5-450) pg/mL Total Protein (6.4-8.2) g/dL Albumin (3.4-5.0) g/dL Globulin (2.3-3.5) g/dL Albumin/Globulin Ratio (1.2-2.2) Urine Color Yellow Urine Appearance Cloudy Urine pH 6.0 (4.5-8.0) Ur Specific [place] 1.010 (1.008-1.030) Urine Protein Negative (NEGATIVE) mg/dL Urine Glucose (UA) Normal (NEGATIVE) mg/dL Urine Ketones Negative (NEGATIVE) mg/dL Urine Occult Blood Negative (NEGATIVE) Urine Nitrite Negative (NEGATIVE) Urine Bilirubin Negative (NEGATIVE) Urine Urobilinogen Normal (NORMAL) mg/dL Ur Leukocyte Esterase Small (NEGATIVE) Urine RBC 0-5 (0-5) Urine WBC 10-20 H (0-5) Ur Epithelial Cells Rare Amorphous Sediment Not seen Urine Bacteria Many Urine Mucus Not seen 12/18/16 12/18/16 Range/Units 11:50 12:24 WBC (4.5-11.0) K/uL RBC (3.30-5.50) M/uL Hgb (12.0-15.0) g/dL Hct (36.0-48.0) % MCV (80-98) fL MCH (27-31) pg MCHC (32-36) % Plt Count (150-400) K/uL Neut % (Auto) (36-66) % Lymph % (Auto) (24-44) % Tompkins % (Auto) (2-6) % Eos % (Auto) (2-4) % Baso % (Auto) (0-1) % PT (9.5-12.0) sec INR (0.80-1.20) Sodium (140-148) mmol/L Potassium (3.6-5.2) mmol/L Chloride (100-108) mmol/L Carbon Dioxide (21-32) mmol/L Anion Gap (5.0-14.0) mmol/L BUN (7-18) mg/dL Creatinine (0.6-1.0) mg/dL Est Cr Clr Drug Dosing mL/min Estimated GFR (MDRD) (>60) Glucose (74-106) mg/dL Lactic Acid 1.4 (0.4-2.0) mmol/L Calcium (8.5-10.1) mg/dL Iron (50-170) ug/dL TIBC (250-450) ug/dl % Saturation (20-55) % Total Bilirubin (0.2-1.0) mg/dL AST (15-37) U/L ALT (12-78) U/L Alkaline Phosphatase (46-116) U/L Troponin I < 0.017 (0.000-0.056) ng/mL C-Reactive Protein (0.0-0.3) mg/dL NT-Pro-B Natriuret Pep (5-450) pg/mL Total Protein (6.4-8.2) g/dL Albumin (3.4-5.0) g/dL Globulin (2.3-3.5) g/dL Albumin/Globulin Ratio (1.2-2.2) Urine Color Urine Appearance Urine pH (4.5-8.0) Ur Specific Cent[place] (1.008-1.030) Urine Protein (NEGATIVE) mg/dL Urine Glucose (UA) (NEGATIVE) mg/dL Urine Ketones (NEGATIVE) mg/dL Urine Occult Blood (NEGATIVE) Urine Nitrite (NEGATIVE) Urine Bilirubin (NEGATIVE) Urine Urobilinogen (NORMAL) mg/dL Ur Leukocyte Esterase (NEGATIVE) Urine RBC (0-5) Urine WBC (0-5) Ur Epithelial Cells Amorphous Sediment Urine Bacteria Urine Mucus Result Diagrams: 12/18/16 10:59 12/18/16 10:59 *Q Meaningful Use (ADM) - VTE *Q VTE Criteria *Q: VTE Pharmacological Contraindications *Q: High INR Value - VTE Risk Assess *Q Each Risk Factor Represents 1 Point: Congestive Heart Failure, Less than 1 Month , Abnormal Pulmonary Function (COPD) Total Score 1 Point Risk Factors: 2 Each Risk Factor Represents 2 Points: None Total Score 2 Point Risk Factors: 0 Each Risk Factor Represents 3 Points: Age 75 Years or Greater Total Score 3 Point Risk Factors: 3 Each Risk Factor Represents 5 Points: None Total Score 5 Point Risk Factors: 0 Venous Thromboembolism Risk Factor Score *Q: 5 - Stroke *Q Stroke Criteria *Q: - AMI *Q AMI Criteria *Q: Problem List Initiated/Reviewed/Updated: Yes Orders Last 24hrs: Active Orders 24 hr Category Date Time Status Patient Status Manage Transfer [TRANSFER] Routine ADT 12/18/16 12:56 Ordered CULTURE BLOOD [BC] Urgent Lab 12/18/16 12:15 Received CULTURE BLOOD [BC] Urgent Lab 12/18/16 12:25 Received CULTURE URINE [RM] Stat Lab 12/18/16 11:50 Received Sodium Chloride 0.9% [Saline Flush] Med 12/18/16 11:47 Active 10 ml FLUSH ASDIRECTED PRN cefTRIAXone [Rocephin] 1 gm Med 12/18/16 12:45 Ordered Sodium Chloride 0.9% [Normal Saline] 50 ml IV Q24H Blood Culture x2 Reflex Set [OM.PC] Urgent Oth 12/18/16 12:11 Ordered Saline Lock Insert [OM.PC] Routine Oth 12/18/16 11:47 Ordered Resuscitation Status Routine Resus Stat 12/18/16 13:00 Ordered Medication Orders Ceftriaxone Sodium 1 gm/ (Sodium Chloride) 50 mls @ 100 mls/hr IV Q24H JOSE CARLOS Sodium Chloride (Saline Flush) 10 ml FLUSH ASDIRECTED PRN PRN Reason: Keep Vein Open Last Admin: 12/18/16 12:06 Dose: 10 ml Assessment/Plan Comment:: ASSESSMENT AND PLAN RIGHT LUNG PNEUMONIA-hemodynamically stable with no evidence of sepsis, she's had symptoms of shortness of breath but no fever and white blood cell count is within normal range. Lactic acid level is within normal range -Blood and sputum cultures pending -Saline lock IV -Supplemental oxygen as needed -Duo nebs and albuterol nebulizer therapy as needed -IV antibiotic therapy with Rocephin and azithromycin CONGESTIVE HEART FAILURE-likely also a component in her recent shortness of breath. Chest x-ray does show modest cardiac enlargement and evidence of fluid overload. Marked elevation in BNP -IV Lasix for diuresis given in emergency department, will reassess in a.m. -Continue QUINTEN inhibitor and beta fartun -Echocardiogram to assess left ventricular function COPD-no evidence of acute exacerbation -Continue outpatient medical regimen -Nebulizer therapy as above CHRONIC ANTICOAGULATION WITH WARFARIN -Recheck INR in a.m. -Daily warfarin dosing depending on INR level CHRONIC KIDNEY DISEASE STAGE IV -Closely monitor urine output and renal function during hospital stay MAINTENANCE ISSUES -DVT prophylaxis; current therapy with warfarin should provide adequate DVT prophylaxis -GI prophylaxis; continue outpatient PPI therapy -Hudson catheter; not indicated -Nutrition; 2 g sodium diet -Nicotine dependence; not required CODE STATUS-DNR/DNI ADMISSION STATUS-patient will be admitted to inpatient status, expect at least a 2 night hospital stay for evaluation and management of problems as outlined above. At the time of this admission I do not reasonably expected evaluation and management of this problem will require more than a 96 hour hospital stay. DISPOSITION-anticipate discharge to home after the hospital stay. PRIMARY CARE PROVIDER-patient is from out of the area and receives primary care in [place]
[2016-12-18] MEDS ORDERED: cefTRIAXone 1 GM Vial ONE (13:18)
[2016-12-18] MEDS ORDERED: Sodium Chloride 0.9% 50 ML ONE (13:20)
[2016-12-18] MEDS: cefTRIAXone 1 GM in Sodium Chloride 0.9% 50 ML IV SCH (13:26)
[2016-12-18] MEDS ORDERED: Hypromellose 0.4% Ophth Soln 15 ML Bottle EYEBOTH PRN ×2 (15:07)
[2016-12-18] MEDS ORDERED: Albuterol 0.083% 2.5 MG/3 ML Neb Soln NEB PRN (15:07)
[2016-12-18] MEDS ORDERED: Magnesium Hydroxide 400 MG/5 ML Susp 30 ML Cup PO PRN (15:07)
[2016-12-18] MEDS ORDERED: Acetaminophen 325 MG Tab PO PRN (15:07)
[2016-12-18] MEDS ORDERED: Polyethylene Glycol 3350 Powder 17 GM Packet PO PRN (15:07)
[2016-12-18] MEDS ORDERED: Sodium Chloride 0.9% 10 ML Syringe FLUSH PRN (15:07)
[2016-12-18] MEDS ORDERED: oxyCODONE 5 MG Tab PO PRN (15:07)
[2016-12-18] MEDS ORDERED: Ondansetron 4 MG/2 ML SDV IV PRN (15:07)
[2016-12-18] MEDS: Azithromycin 500 MG in Sodium Chloride 0.9% 250 ML IV SCH (15:50)
[2016-12-18] MEDS: hydrOXYzine HCl 25 MG Tab PO SCH ×2 (15:56→23:11)
[2016-12-18] MEDS: Albuterol/Ipratropium 3.0-0.5 MG/3 ML Neb Soln NEB SCH ×2 (16:40→21:17)
[2016-12-18] MEDS: Brimonidine 0.2% Ophth Soln 5 ML Bottle EYELF SCH ×2 (17:52→21:17)
[2016-12-18] MEDS: Arformoterol 15 MCG/2 ML Neb Soln INH SCH (21:19)
[2016-12-18] MEDS: Timolol Maleate 0.25% Ophth Soln 5 ML Bottle EYELF SCH (21:24)
[2016-12-18] MEDS: Metoprolol Tartrate 25 MG Tab PO SCH (21:27)
[2016-12-18] MEDS: Latanoprost 0.005% Ophth Soln 2.5 ML Bottle EYELF SCH (21:33)
[2016-12-18] MEDS: Dexamethasone/Neomycin/Polymyxin B Ophth Oint 3.5 GM Tube EYEBOTH SCH (21:36)
[2016-12-19] MEDS: Pantoprazole 40 MG Tab.CR PO SCH (07:17)
[2016-12-19] MEDS: Levothyroxine 75 MCG Tab PO SCH (07:17)
[2016-12-19] MEDS: Albuterol/Ipratropium 3.0-0.5 MG/3 ML Neb Soln NEB SCH ×4 (07:25→21:24)
[2016-12-19] MEDS: Arformoterol 15 MCG/2 ML Neb Soln INH SCH ×2 (07:25→21:24)
[2016-12-19] MEDS: hydrOXYzine HCl 25 MG Tab PO SCH ×2 (08:49→16:00)
[2016-12-19] MEDS: Docusate Sodium 100 MG Cap PO SCH (08:50)
[2016-12-19] MEDS: Brimonidine 0.2% Ophth Soln 5 ML Bottle EYELF SCH ×3 (08:50→21:24)
[2016-12-19] MEDS: Lisinopril 10 MG Tab PO SCH (08:51)
[2016-12-19] MEDS: Metoprolol Tartrate 25 MG Tab PO SCH ×2 (08:51→21:24)
[2016-12-19] MEDS: Timolol Maleate 0.25% Ophth Soln 5 ML Bottle EYELF SCH ×2 (08:51→21:43)
[2016-12-19] MEDS ORDERED: Potassium Chloride 20 MEQ Tab.ER PO ONE (09:30)
--- NOTE | 2016-12-19 10:54 | PCM.PN ---
- General Info Date of Service: 12/19/16 Functional Status: Reports: Pain Controlled, Tolerating Diet - Review of Systems General: Reports: Weakness. Denies: Fever, Chills Pulmonary: Reports: Shortness of Breath. Denies: Cough, Sputum Cardiovascular: Reports: Dyspnea on Exertion. Denies: Chest Pain, Palpitations , Orthopnea, PND, Edema Gastrointestinal: Reports: No Symptoms Systems Review Comment:: Ms. Hutchinson has felt improved since admission with less shortness of breath, she has continued to require intermittent supplemental oxygen to maintain saturations within desired range. Vital signs have been stable and she has remained afebrile. Creatinine modestly increased from yesterday. - Patient Data Vitals - Most Recent: Last Vital Signs Temp 97.4 F 12/19/16 08:37 Pulse 78 12/19/16 08:51 Resp 18 12/19/16 08:37 BP 142/62 H 12/19/16 08:51 Pulse Ox 98 12/19/16 08:37 Weight - Most Recent: 163 lb 0.016 oz I&O - Last 24 Hours: Intake & Output 12/18/16 12/19/16 12/19/16 22:59 06:59 14:59 Intake Total 300 Output Total 200 Balance 300 -200 Lab Results Last 24 Hours: Laboratory Results - last 24 hr 12/19/16 12/19/16 12/19/16 Range/Units 04:15 04:15 04:15 WBC 6.0 (4.5-11.0) K/uL RBC 3.22 L (3.30-5.50) M/uL Hgb 9.6 L (12.0-15.0) g/dL Hct 30.3 L (36.0-48.0) % MCV 94 (80-98) fL MCH 30 (27-31) pg MCHC 32 (32-36) % Plt Count 256 (150-400) K/uL Neut % (Auto) 61 (36-66) % Lymph % (Auto) 20 L (24-44) % Ross % (Auto) 11 H (2-6) % Eos % (Auto) 8 H (2-4) % Baso % (Auto) 0 (0-1) % PT 20.0 H (9.5-12.0) sec INR 1.82 H (0.80-1.20) Sodium 140 (140-148) mmol/L Potassium 3.3 L (3.6-5.2) mmol/L Chloride 104 (100-108) mmol/L Carbon Dioxide 27 (21-32) mmol/L Anion Gap 12.3 (5.0-14.0) mmol/L BUN 45 H (7-18) mg/dL Creatinine 2.0 H (0.6-1.0) mg/dL Est Cr Clr Drug Dosing 15.38 mL/min Estimated GFR (MDRD) 24 L (>60) Glucose 169 H (74-106) mg/dL Calcium 8.1 L (8.5-10.1) mg/dL Magnesium 2.0 (1.8-2.4) mg/dL Med Orders - Current: Current Medications Acetaminophen (Tylenol) 650 mg PO Q4H PRN PRN Reason: Pain (Mild 1-3)/fever Albuterol (Proventil Neb Soln) 2.5 mg NEB Q4H PRN PRN Reason: Shortness Of Breath/wheezing Albuterol/Ipratropium (Duoneb 3.0-0.5 Mg/3 Ml) 3 ml NEB QIDRT [facility] Last Admin: 12/19/16 07:25 Dose: 3 ml Amitriptyline HCl (Elavil) 100 mg PO BEDTIME [facility] Last Admin: 12/18/16 21:19 Dose: 100 mg Arformoterol Tartrate (Brovana) 15 mcg INH BIDRT [facility] Last Admin: 12/19/16 07:25 Dose: 15 mcg Artificial Tears (Natural Balance Tears) 0 ml EYEBOTH QID PRN PRN Reason: Dry Eyes Brimonidine Tartrate (Alphagan 0.2% Ophth Soln) 0 ml EYELF TID [facility] Last Admin: 12/19/16 08:50 Dose: 1 drop Docusate Sodium (Colace) 300 mg PO DAILY [facility] Last Admin: 12/19/16 08:50 Dose: 300 mg Furosemide (Lasix) 40 mg PO DAILY [facility] Hydroxyzine HCl (Atarax) 25 mg PO Q8H [facility] Last Admin: 12/19/16 08:49 Dose: 25 mg Ceftriaxone Sodium 1 gm/ (Sodium Chloride) 50 mls @ 100 mls/hr IV Q24H [facility] Last Admin: 12/18/16 13:26 Dose: 100 mls/hr Azithromycin 500 mg/ Sodium (Chloride) 250 mls @ 250 mls/hr IV Q24H [facility] Last Admin: 12/18/16 15:50 Dose: 250 mls/hr Latanoprost (Xalatan 0.005% Ophth Soln) 0 ml EYELF BEDTIME [facility] Last Admin: 12/18/16 21:33 Dose: 1 drop Levothyroxine Sodium (Levothyroxine) 75 mcg PO ACBREAKFAST [facility] Last Admin: 12/19/16 07:17 Dose: 75 mcg Lisinopril (Prinivil) 10 mg PO DAILY [facility] Last Admin: 12/19/16 08:51 Dose: 10 mg Magnesium Hydroxide (Milk Of Magnesia) 30 ml PO Q12H PRN PRN Reason: Constipation Metoprolol Tartrate (Lopressor) 25 mg PO BID [facility] Last Admin: 12/19/16 08:51 Dose: 25 mg Neomycin/Polymyxin/Dexamethasone (Maxitrol Ophth Oint) 0 gm EYEBOTH BEDTIME [facility] Last Admin: 12/18/16 21:36 Dose: 1 applic Ondansetron HCl (Zofran) 4 mg IV Q4H PRN PRN Reason: Nausea/Vomiting Oxycodone HCl (Oxycodone) 5 mg PO Q4H PRN PRN Reason: Pain (moderate 4-6) Pantoprazole Sodium (Protonix) 40 mg PO ACBREAKFAST [facility] Last Admin: 12/19/16 07:17 Dose: 40 mg Polyethylene Glycol (Miralax) 17 gm PO DAILY PRN PRN Reason: Constipation Sodium Chloride (Saline Flush) 10 ml FLUSH ASDIRECTED PRN PRN Reason: Keep Vein Open Timolol Maleate (Timoptic 0.25% Ophth Soln) 0 ml EYELF BID [facility] Last Admin: 12/19/16 08:51 Dose: 1 drop Warfarin Sodium (Coumadin) 5 mg PO ONETIME ONE Stop: 12/19/16 10:50 Discontinued Medications Ceftriaxone Sodium (Rocephin) Confirm Administered Dose 1 gm .ROUTE .STK-MED ONE Stop: 12/18/16 13:19 Last Admin: 12/18/16 13:28 Dose: Not Given Furosemide (Lasix) 60 mg IVPUSH ONETIME ONE Stop: 12/18/16 11:26 Last Admin: 12/18/16 19:08 Dose: Not Given Furosemide (Lasix) Confirm Administered Dose 40 mg .ROUTE .STK-MED ONE Stop: 12/18/16 11:49 Last Admin: 12/18/16 12:02 Dose: Not Given Furosemide (Lasix) 60 mg IVPUSH ONETIME ONE Stop: 12/18/16 11:50 Last Admin: 12/18/16 11:57 Dose: 60 mg Sodium Chloride (Normal Saline) Confirm Administered Dose 50 mls @ as directed .ROUTE .STK-MED ONE Stop: 12/18/16 13:21 Last Admin: 12/18/16 13:28 Dose: Not Given Potassium Chloride (Klor-Con M20) 40 meq PO ONETIME ONE Stop: 12/19/16 09:31 Last Admin: 12/19/16 10:09 Dose: 40 meq Sodium Chloride (Saline Flush) 10 ml FLUSH ASDIRECTED PRN PRN Reason: Keep Vein Open Last Admin: 12/18/16 14:29 Dose: 10 ml - Exam Quality Assessment: Supplemental Oxygen, DVT Prophylaxis General: Alert, Oriented, Cooperative, No Acute Distress Lungs: Clear to Auscultation, Normal Respiratory Effort Cardiovascular: Regular Rate, Regular Rhythm, No Murmurs GI/Abdominal Exam: Normal Bowel Sounds, Soft, Non-Tender, No Organomegaly Extremities: Non-Tender, No Pedal Edema Skin: Warm, Dry, Intact - Problem List Review Problem List Initiated/Reviewed/Updated: Yes - My Orders Last 24 Hours: My Active Orders 12/18/16 13:00 Resuscitation Status Routine 12/18/16 15:07 Patient Status [ADT] Routine Ambulate [RC] QID Cardiac Monitoring [RC] .As Directed Intake and Output [RC] QSHIFT Notify Provider Vital Signs [RC] ASDIRECTED Oxygen Therapy [RC] PRN RT Aerosol Therapy [RC] ASDIRECTED Up With Assistance [RC] ASDIRECTED Up to Chair [RC] QID VTE/DVT Education [RC] Per Unit Routine Vital Signs [RC] Q4H Echo Comp wo Cont [US] Urgent CULTURE RESPIRATORY + SMEAR [RM] Stat Acetaminophen [Tylenol] 650 mg PO Q4H PRN Albuterol [Proventil Neb Soln] 2.5 mg NEB Q4H PRN Magnesium Hydroxide [Milk of Magnesia] 30 ml PO Q12H PRN Ondansetron [Zofran] 4 mg IV Q4H PRN Polyethylene Glycol 3350 [MiraLAX] 17 gm PO DAILY PRN Sodium Chloride 0.9% [Saline Flush] 10 ml FLUSH ASDIRECTED PRN oxyCODONE 5 mg PO Q4H PRN Saline Lock Insert [OM.PC] Routine VTE Pharmacological Contraindications [AST] Per Unit Routine 12/18/16 16:00 Albuterol/Ipratropium [DuoNeb 3.0-0.5 MG/3 ML] 3 ml NEB QIDRT Azithromycin [Zithromax] 500 mg Sodium Chloride 0.9% [Normal Saline] 250 ml IV Q24H 12/18/16 Lunch 2 Gram Sodium Diet [DIET] 12/19/16 09:00 Echo Comp wo Cont [US] Urgent 12/19/16 10:49 Warfarin [Coumadin] 5 mg PO ONETIME ONE 12/19/16 10:50 Consult to Air And Hydronic Balancing Technician [CONS] Routine 12/19/16 11:00 Furosemide [Lasix] 40 mg PO DAILY 12/20/16 05:00 BASIC METABOLIC PANEL,BMP [CHEM] Timed CBC WITH AUTO DIFF [HEME] Timed 12/20/16 05:11 INR,PT,PROTHROMBIN TIME [COAG] AM - Plan Plan:: ASSESSMENT AND PLAN RIGHT LUNG PNEUMONIA-hemodynamically stable with no evidence of sepsis, she's had symptoms of shortness of breath but no fever and white blood cell count is within normal range. Lactic acid level is within normal range -Blood and sputum cultures pending -Saline lock IV -Supplemental oxygen as needed -Duo nebs and albuterol nebulizer therapy as needed -IV antibiotic therapy with Rocephin and azithromycin CONGESTIVE HEART FAILURE-likely also a component in her recent shortness of breath. Shortness of breath improved from admission -Furosemide 40 mg by mouth daily -Continue QUINTEN inhibitor and beta fartun -Echocardiogram today -2 g sodium diet, dietary consult today to review COPD-no evidence of acute exacerbation -Continue outpatient medical regimen -Nebulizer therapy as above CHRONIC ANTICOAGULATION WITH WARFARIN -Recheck INR in a.m. -Daily warfarin dosing depending on INR level CHRONIC KIDNEY DISEASE STAGE IV -Closely monitor urine output and renal function during hospital stay MAINTENANCE ISSUES -DVT prophylaxis; current therapy with warfarin should provide adequate DVT prophylaxis -GI prophylaxis; continue outpatient PPI therapy -Hudson catheter; not indicated -Nutrition; 2 g sodium diet -Nicotine dependence; not required CODE STATUS-DNR/DNI ADMISSION STATUS-patient will be admitted to inpatient status, expect at least a 2 night hospital stay for evaluation and management of problems as outlined above. At the time of this admission I do not reasonably expected evaluation and management of this problem will require more than a 96 hour hospital stay. DISPOSITION-anticipate discharge to home tomorrow PRIMARY CARE PROVIDER-patient is from out of the area and receives primary care in [place]
[2016-12-19] MEDS: Furosemide 40 MG Tab PO SCH (11:29)
[2016-12-19] MEDS: cefTRIAXone 1 GM in Sodium Chloride 0.9% 50 ML IV SCH (12:37)
[2016-12-19] MEDS ORDERED: Warfarin 5 MG Tab PO ONE (13:00)
[2016-12-19] MEDS: Azithromycin 500 MG in Sodium Chloride 0.9% 250 ML IV SCH (16:00)
[2016-12-19] MEDS: Dexamethasone/Neomycin/Polymyxin B Ophth Oint 3.5 GM Tube EYEBOTH SCH (21:27)
[2016-12-19] MEDS: Latanoprost 0.005% Ophth Soln 2.5 ML Bottle EYELF SCH (21:42)
[2016-12-20] MEDS: hydrOXYzine HCl 25 MG Tab PO SCH ×4 (00:38→23:41)
[2016-12-20] MEDS: Albuterol/Ipratropium 3.0-0.5 MG/3 ML Neb Soln NEB SCH ×4 (07:23→20:18)
[2016-12-20] MEDS: Arformoterol 15 MCG/2 ML Neb Soln INH SCH ×2 (07:24→20:17)
[2016-12-20] MEDS: Pantoprazole 40 MG Tab.CR PO SCH (07:30)
[2016-12-20] MEDS: Levothyroxine 75 MCG Tab PO SCH (07:30)
[2016-12-20] MEDS: Brimonidine 0.2% Ophth Soln 5 ML Bottle EYELF SCH ×3 (09:09→20:17)
[2016-12-20] MEDS: Furosemide 40 MG Tab PO SCH (09:10)
[2016-12-20] MEDS: Docusate Sodium 100 MG Cap PO SCH (09:10)
[2016-12-20] MEDS: Metoprolol Tartrate 25 MG Tab PO SCH ×2 (09:10→20:19)
[2016-12-20] MEDS: Timolol Maleate 0.25% Ophth Soln 5 ML Bottle EYELF SCH ×2 (09:11→20:18)
[2016-12-20] MEDS: Lisinopril 10 MG Tab PO SCH (09:11)
[2016-12-20] MEDS: Lactobacillus Rhamnosus GG (Probiotic) Cap PO SCH ×2 (12:48→20:18)
[2016-12-20] MEDS: Amoxicillin/Clavulanate K 875-125 MG Tab PO SCH ×2 (12:48→20:17)
--- NOTE | 2016-12-20 13:15 | PCM.PN ---
- General Info Date of Service: 12/20/16 Functional Status: Reports: Tolerating Diet, Ambulating, Urinating - Review of Systems General: Reports: Weakness. Denies: Fever, Chills Pulmonary: Reports: Shortness of Breath. Denies: Pleuritic Chest Pain, Cough, Sputum, Hemoptysis, Wheezing Cardiovascular: Reports: Dyspnea on Exertion. Denies: Chest Pain, Palpitations , Orthopnea, PND, Edema Gastrointestinal: Reports: No Symptoms Systems Review Comment:: Ms. Hutchinson was initially improved following admission now today is noted more shortness of breath, certainly not as bad as what she experienced prior to admission. Vital signs have otherwise been stable and she has remained afebrile. Urine culture is showing growth of a resistant Escherichia coli, antibiotics will be adjusted. Currently other than shortness of breath denies other respiratory symptoms with no cough or sputum production. Despite shortness of breath decision saturations have remained within the desired range even with activity. - Patient Data Vitals - Most Recent: Last Vital Signs Temp 96.7 F 12/20/16 11:09 Pulse 78 12/20/16 12:22 Resp 16 12/20/16 11:09 BP 126/58 L 12/20/16 11:09 Pulse Ox 97 12/20/16 07:48 Weight - Most Recent: 163 lb 0.016 oz I&O - Last 24 Hours: Intake & Output 12/19/16 12/20/16 12/20/16 22:59 06:59 14:59 Intake Total 490 200 Output Total 550 900 500 Balance -60 -900 -300 Lab Results Last 24 Hours: Laboratory Results - last 24 hr 12/20/16 12/20/16 12/20/16 Range/Units 04:23 04:23 04:23 WBC 6.0 (4.5-11.0) K/uL RBC 3.28 L (3.30-5.50) M/uL Hgb 9.8 L (12.0-15.0) g/dL Hct 31.2 L (36.0-48.0) % MCV 95 (80-98) fL MCH 30 (27-31) pg MCHC 31 L (32-36) % Plt Count 277 (150-400) K/uL Neut % (Auto) 55 (36-66) % Lymph % (Auto) 24 (24-44) % [facility] % (Auto) 12 H (2-6) % Eos % (Auto) 9 H (2-4) % Baso % (Auto) 1 (0-1) % PT 16.7 H (9.5-12.0) sec INR 1.53 H (0.80-1.20) Sodium 139 L (140-148) mmol/L Potassium 4.1 (3.6-5.2) mmol/L Chloride 101 (100-108) mmol/L Carbon Dioxide 29 (21-32) mmol/L Anion Gap 13.1 (5.0-14.0) mmol/L BUN 45 H (7-18) mg/dL Creatinine 1.7 H (0.6-1.0) mg/dL Est Cr Clr Drug Dosing 17.93 mL/min Estimated GFR (MDRD) 28 L (>60) Glucose 104 (74-106) mg/dL Calcium 8.2 L (8.5-10.1) mg/dL Med Orders - Current: Current Medications Acetaminophen (Tylenol) 650 mg PO Q4H PRN PRN Reason: Pain (Mild 1-3)/fever Albuterol (Proventil Neb Soln) 2.5 mg NEB Q4H PRN PRN Reason: Shortness Of Breath/wheezing Albuterol/Ipratropium (Duoneb 3.0-0.5 Mg/3 Ml) 3 ml NEB QIDRT [facility] Last Admin: 12/20/16 12:22 Dose: 3 ml Amitriptyline HCl (Elavil) 100 mg PO BEDTIME [facility] Last Admin: 12/19/16 21:24 Dose: 100 mg Amoxicillin/Clavulanate Potassium (Augmentin 875 Mg/125 Mg) 1 tab PO BID [facility] Last Admin: 12/20/16 12:48 Dose: 1 tab Arformoterol Tartrate (Brovana) 15 mcg INH BIDRT [facility] Last Admin: 12/20/16 07:24 Dose: 15 mcg Artificial Tears (Natural Balance Tears) 0 ml EYEBOTH QID PRN PRN Reason: Dry Eyes Brimonidine Tartrate (Alphagan 0.2% Ophth Soln) 0 ml EYELF TID [facility] Last Admin: 12/20/16 09:09 Dose: 1 drop Docusate Sodium (Colace) 300 mg PO DAILY [facility] Last Admin: 12/20/16 09:10 Dose: 300 mg Furosemide (Lasix) 40 mg PO DAILY [facility] Last Admin: 12/20/16 09:10 Dose: 40 mg Hydroxyzine HCl (Atarax) 25 mg PO Q8H [facility] Last Admin: 12/20/16 07:30 Dose: 25 mg Lactobacillus Rhamnosus (Culturelle) 2 cap PO BID [facility] Last Admin: 12/20/16 12:48 Dose: 2 cap Latanoprost (Xalatan 0.005% Ophth Soln) 0 ml EYELF BEDTIME [facility] Last Admin: 12/19/16 21:42 Dose: 1 drop Levothyroxine Sodium (Levothyroxine) 75 mcg PO ACBREAKFAST [facility] Last Admin: 12/20/16 07:30 Dose: 75 mcg Lisinopril (Prinivil) 10 mg PO DAILY [facility] Last Admin: 12/20/16 09:11 Dose: 10 mg Magnesium Hydroxide (Milk Of Magnesia) 30 ml PO Q12H PRN PRN Reason: Constipation Metoprolol Tartrate (Lopressor) 25 mg PO BID [facility] Last Admin: 12/20/16 09:10 Dose: 25 mg Neomycin/Polymyxin/Dexamethasone (Maxitrol Ophth Oint) 0 gm EYEBOTH BEDTIME [facility] Last Admin: 12/19/16 21:27 Dose: 1 applic Ondansetron HCl (Zofran) 4 mg IV Q4H PRN PRN Reason: Nausea/Vomiting Oxycodone HCl (Oxycodone) 5 mg PO Q4H PRN PRN Reason: Pain (moderate 4-6) Pantoprazole Sodium (Protonix) 40 mg PO ACBREAKFAST [facility] Last Admin: 12/20/16 07:30 Dose: 40 mg Polyethylene Glycol (Miralax) 17 gm PO DAILY PRN PRN Reason: Constipation Sodium Chloride (Saline Flush) 10 ml FLUSH ASDIRECTED PRN PRN Reason: Keep Vein Open Timolol Maleate (Timoptic 0.25% Ophth Soln) 0 ml EYELF BID [facility] Last Admin: 12/20/16 09:11 Dose: 1 drop Discontinued Medications Ceftriaxone Sodium (Rocephin) Confirm Administered Dose 1 gm .ROUTE .STK-MED ONE Stop: 12/18/16 13:19 Last Admin: 12/18/16 13:28 Dose: Not Given Furosemide (Lasix) 60 mg IVPUSH ONETIME ONE Stop: 12/18/16 11:26 Last Admin: 12/18/16 19:08 Dose: Not Given Furosemide (Lasix) Confirm Administered Dose 40 mg .ROUTE .STK-MED ONE Stop: 12/18/16 11:49 Last Admin: 12/18/16 12:02 Dose: Not Given Furosemide (Lasix) 60 mg IVPUSH ONETIME ONE Stop: 12/18/16 11:50 Last Admin: 12/18/16 11:57 Dose: 60 mg Ceftriaxone Sodium 1 gm/ (Sodium Chloride) 50 mls @ 100 mls/hr IV Q24H [facility] Last Admin: 12/19/16 12:37 Dose: 100 mls/hr Sodium Chloride (Normal Saline) Confirm Administered Dose 50 mls @ as directed .ROUTE .STK-MED ONE Stop: 12/18/16 13:21 Last Admin: 12/18/16 13:28 Dose: Not Given Azithromycin 500 mg/ Sodium (Chloride) 250 mls @ 250 mls/hr IV Q24H [facility] Last Admin: 12/19/16 16:00 Dose: 250 mls/hr Potassium Chloride (Klor-Con M20) 40 meq PO ONETIME ONE Stop: 12/19/16 09:31 Last Admin: 12/19/16 10:09 Dose: 40 meq Sodium Chloride (Saline Flush) 10 ml FLUSH ASDIRECTED PRN PRN Reason: Keep Vein Open Last Admin: 12/18/16 14:29 Dose: 10 ml Warfarin Sodium (Coumadin) 5 mg PO ONETIME ONE Stop: 12/19/16 13:01 Last Admin: 12/19/16 12:54 Dose: 5 mg - Exam Quality Assessment: DVT Prophylaxis General: Alert, Oriented, Cooperative, Mild Distress Lungs: Clear to Auscultation, Normal Respiratory Effort, Decreased Breath Sounds Cardiovascular: Regular Rate, Regular Rhythm, No Murmurs GI/Abdominal Exam: Normal Bowel Sounds, Soft, Non-Tender, No Organomegaly, No Distention Extremities: Non-Tender, No Pedal Edema Skin: Warm, Dry, Intact - Problem List Review Problem List Initiated/Reviewed/Updated: Yes - My Orders Last 24 Hours: My Active Orders 12/20/16 10:05 RT Evaluate for Home Oxygen [RC] Click to Edit 12/20/16 10:45 Amoxicillin/Clavulanate K [Augmentin 875 MG/125 MG] 1 tab PO BID Lactobacillus Rhamnosus GG [Culturelle] 2 cap PO BID - Plan Plan:: ASSESSMENT AND PLAN RIGHT LUNG PNEUMONIA-hemodynamically stable with no evidence of sepsis, she's had symptoms of shortness of breath but no fever and white blood cell count is within normal range. Lactic acid level is within normal range -Blood and sputum cultures negative thus far -Saline lock IV -Supplemental oxygen as needed -Duo nebs and albuterol nebulizer therapy as needed URINARY TRACT INFECTION-resistant Escherichia coli growing from urine -Augmentin 875 one by mouth twice a day CONGESTIVE HEART FAILURE-likely also a component in her recent shortness of breath. Shortness of breath improved from admission. Echocardiogram showed mildly decreased left ventricular function with aortic stenosis, aortic insufficiency, and mitral regurgitation -Furosemide 40 mg by mouth daily -Furosemide 40 mg IV as an additional dose this evening -Continue QUINTEN inhibitor and beta fartun -2 g sodium diet COPD-no evidence of acute exacerbation -Continue outpatient medical regimen -Nebulizer therapy as above CHRONIC ANTICOAGULATION WITH WARFARIN-INR is subtherapeutic today -Recheck INR in a.m. -Warfarin 5 mg by mouth today CHRONIC KIDNEY DISEASE STAGE IV- renal function still severely compromised but has improved modestly since admission -Closely monitor urine output and renal function during hospital stay MAINTENANCE ISSUES -DVT prophylaxis; current therapy with warfarin should provide adequate DVT prophylaxis -GI prophylaxis; continue outpatient PPI therapy -Hudson catheter; not indicated -Nutrition; 2 g sodium diet -Nicotine dependence; not required CODE STATUS-DNR/DNI ADMISSION STATUS-patient will be admitted to inpatient status, expect at least a 2 night hospital stay for evaluation and management of problems as outlined above. At the time of this admission I do not reasonably expected evaluation and management of this problem will require more than a 96 hour hospital stay. DISPOSITION-anticipate discharge to home tomorrow PRIMARY CARE PROVIDER-patient is from out of the area and receives primary care in [place]
--- NOTE | 2016-12-20 15:33 | ECHO ---
REFERRING PRACTITIONER: 1. AO ROOT: 3.36 (NL = 2.0-3.7) 2. AORTIC VALVE EXCURSION: 3. LA: 4.99. CM (NL = 1.9-4.0) 4. RV: 3.28. (NL = .09-2.6) 5. LV GARCIA: 5.41. (NL = 3.5-5.7) 6. LV SYST: 4.09. (NL = 2.2-4.3) 7. FRACTIONAL SHORTENING: (2542) 8. EJECTION FRACTION: 40% to 50%. (5075) 9. IVS: 1.26 (NL = 0.6-1.1) 10. LVPW: 1.25 (NL = 0.6 1.1) INDICATIONS: Congestive heart failure. By 2D echo, there is a decrease in left ventricular function consistent with estimated 40% to 50%. There is mild concentric left ventricular hypertrophy. There is hypokinesis of the basilar portion of the septal wall. There is no pericardial effusion noted on this study. There is calcification of the aortic valve leaflets with impairment of leaflet motion. There is calcification of mitral valve annulus, valve otherwise appears to be structurally normal. Tricuspid and pulmonic valves are structurally normal in appearance. There is biatrial enlargement as well as enlargement of the right ventricle with preserved right ventricular function. Left ventricle appears to be within normal range for size as is the aortic root. By Doppler and color Doppler, there is elevation in estimated right ventricular pressure at 49 mmHg. There is mild aortic stenosis with a peak velocity of 2.46 m/sec. A peak pressure gradient of 24 mmHg and a mean gradient for 14 mmHg. There is severe mitral regurgitation, moderate aortic insufficiency and [id number] tricuspid regurgitation. IMPRESSION: 1. Decreased left ventricular function, estimated ejection fraction of 40% to 50%. 2. Mild concentric left ventricular hypertrophy. 3. Specific wall motion abnormality as described above. 4. Biatrial enlargement. 5. Right ventricular enlargement with preserved right ventricular function. 6. Elevation in estimated right ventricular pressure at 49 mmHg. 7. Severe mitral regurgitation. 8. Mild aortic stenosis. 9. Moderate aortic insufficiency. 10. [id number] tricuspid regurgitation. /[id number] ROSIE
[2016-12-20] MEDS ORDERED: Warfarin 5 MG Tab PO ONE (17:00)
[2016-12-20] MEDS ORDERED: Furosemide 40 MG/4 ML VIAL IVPUSH ONE (18:00)
[2016-12-20] MEDS: Dexamethasone/Neomycin/Polymyxin B Ophth Oint 3.5 GM Tube EYEBOTH SCH (20:18)
[2016-12-20] MEDS: Latanoprost 0.005% Ophth Soln 2.5 ML Bottle EYELF SCH (20:19)
[2016-12-21] MEDS: Albuterol/Ipratropium 3.0-0.5 MG/3 ML Neb Soln NEB SCH ×3 (07:22→14:37)
[2016-12-21] MEDS: Arformoterol 15 MCG/2 ML Neb Soln INH SCH (07:22)
[2016-12-21] MEDS: Pantoprazole 40 MG Tab.CR PO SCH (08:31)
[2016-12-21] MEDS: Levothyroxine 75 MCG Tab PO SCH (08:31)
[2016-12-21] MEDS: hydrOXYzine HCl 25 MG Tab PO SCH (08:32)
[2016-12-21] MEDS: Lactobacillus Rhamnosus GG (Probiotic) Cap PO SCH (08:34)
[2016-12-21] MEDS: Amoxicillin/Clavulanate K 875-125 MG Tab PO SCH (08:34)
[2016-12-21] MEDS: Furosemide 40 MG Tab PO SCH (08:34)
[2016-12-21] MEDS: Docusate Sodium 100 MG Cap PO SCH (08:34)
[2016-12-21] MEDS: Lisinopril 10 MG Tab PO SCH (08:35)
[2016-12-21] MEDS: Metoprolol Tartrate 25 MG Tab PO SCH (08:36)
[2016-12-21] MEDS: Timolol Maleate 0.25% Ophth Soln 5 ML Bottle EYELF SCH (08:36)
[2016-12-21] MEDS: Brimonidine 0.2% Ophth Soln 5 ML Bottle EYELF SCH (08:38)
[2016-12-21 11:24] VITALS: BP 109/47
--- NOTE | 2016-12-21 13:21 | PCM.DCSUM1 ---
Discharge Summary - Hospital Course Brief History: Ms. Hutchinson is an 86-year-old woman who was admitted through the emergency department with increased shortness of breath, hypoxia, PND, and orthopnea secondary to congestive heart failure and underlying chronic kidney disease stage IV. - Discharge Data Discharge Date: 12/21/16 Discharge Disposition: Home, Self-Care 01 Condition: Fair - Discharge Diagnosis/Problem(s) (1) Palliative care status SNOMED Code(s): 693547570 ICD Code: Z51.5 - ENCOUNTER FOR PALLIATIVE CARE Status: Acute Current Visit: Yes (2) CKD (chronic kidney disease) stage 4, GFR 15-29 ml/min SNOMED Code(s): 285271907 ICD Code: N18.4 - CHRONIC KIDNEY DISEASE, STAGE 4 (SEVERE) Status: Acute Current Visit: Yes (3) UTI (urinary tract infection) SNOMED Code(s): 63230383 ICD Code: N39.0 - URINARY TRACT INFECTION, SITE NOT SPECIFIED Status: Acute Current Visit: Yes (4) Pneumonia SNOMED Code(s): 778800574 ICD Code: J18.9 - PNEUMONIA, UNSPECIFIED ORGANISM Status: Acute Current Visit: Yes (5) CHF (congestive heart failure) SNOMED Code(s): 08659657 ICD Code: I50.9 - HEART FAILURE, UNSPECIFIED Status: Acute Current Visit : Yes (6) COPD (chronic obstructive pulmonary disease) SNOMED Code(s): 40200077 ICD Code: J44.9 - CHRONIC OBSTRUCTIVE PULMONARY DISEASE, UNSPECIFIED Status : Chronic Current Visit: No - Patient Summary/Data Consults: Consultations 12/19/16 10:50 Consult to Individual Pension Adviser [CONS] Routine Comment: Physician Instructions: Quantity: Reason for Consult: Please review 2 g sodium diet Hospital Course: Ms. Hutchinson is an 86-year-old woman with a history of multiple medical problems including congestive heart failure, cardiac valvular disease, COPD, and chronic kidney disease stage IV. She is visiting our area from her home in [facility]. Over the past few weeks his developed increased shortness of breath that became significantly worse after she arrived in the [place] area. For the past few days prior to admission she is noted increased shortness of breath as well as PND and orthopnea. She had not developed significant peripheral edema. She presented to the emergency department for further evaluation, chest x-ray showed evidence of pulmonary edema, BNP was significantly elevated. Chest x-ray also suggested infiltrate consistent with pneumonia and urinalysis was positive for infection. Blood cultures and urine cultures were obtained at the time of admission and she was started on IV antibiotic therapy with Rocephin and azithromycin. She was given IV diuretic therapy in the emergency room and over the next few days for management of congestive heart failure. She did experience a modest diuresis and improvement in symptoms of shortness of breath. Echocardiogram was obtained which showed decreased left ventricular function estimated ejection fraction of 40-50% with severe MR, moderate AI, and mild left ear. On discharge she will be placed on increased dose of diuretic therapy with furosemide 40 mg by mouth daily. Importance of following a strict 2 g sodium diet was reviewed with the patient and she was seen by the dietitian to review this diet. Blood cultures remained negative throughout the hospital stay but urine culture did grow out resistant Escherichia coli organism that was sensitive to Augmentin. She will complete additional four-day course of oral antibiotic therapy with Augmentin 875 one twice daily. During hospital stay was also treated with probiotic therapy and this will be continued after discharge. Activity will be as tolerated and she is encouraged to continue to follow a strict 2 g sodium diet. Follow-up appointment should be scheduled with her primary care provider within one week. - Patient Instructions Diet: Low Sodium Activity: As Tolerated Other/Special Instructions: Please schedule follow-up appointment with primary care provider within one week. - Discharge Plan Prescriptions/Med Rec: Amoxicillin/Clavulanate K [Augmentin 875-125 MG] 1 tab PO BID #8 tablet Furosemide [Lasix] 40 mg PO DAILY #30 tablet Lactobacillus Rhamnosus GG [Culturelle] 2 cap PO BID #60 cap Home Medications: Home Meds Acetaminophen 500 mg PO Q6H PRN 12/18/16 [History] Acetaminophen with Codeine [Tylenol with Codeine #3 Tablet] 1 each PO QID PRN [History] Albuterol [Proventil HFA] 2 puff INH Q4H PRN 12/18/16 [History] Amitriptyline HCl 100 mg PO BEDTIME 12/18/16 [History] Antiox#10/Om3/DHA/EPA/Lut/Zeax [I-Caps with Lutein-Mcintyre 3 SFG] 2 each PO BID [History] Brimonidine [Alphagan 0.2% Ophth Soln] 1 drop EYELF BID 12/18/16 [History] Ca Carb & Gluc/Mag Ox & Gluc [Calcium Magnesium Caplet] 1 tab PO DAILY 12/18/16 [History] Carboxymethylcellulos/Glycerin [Refresh Optive Gel Eye Drops] 1 drop OP DAILY PRN 12/18/16 [History] Cholecalciferol (Vitamin D3) [Vitamin D3] 2,000 unit PO DAILY 12/18/16 [History] Docusate Sodium 300 mg PO DAILY 12/18/16 [History] Gluc Tan/Msm/Magnesium/Vit C [Glucosamine Complex-MSM] 1 each PO DAILY 12/18/16 [ History] Hypromellose [Pure & Gentle Eye Drops] 1 drop OP QID PRN 12/18/16 [History] Latanoprost [Xalatan 0.005% Ophth Soln] 1 drop EYELF BEDTIME 12/18/16 [History] Levothyroxine 75 mcg PO ACBREAKFAST 12/18/16 [History] Lidocaine 4% [Xylocaine 4% Top Soln] 1 applic TOP Q8H PRN 12/18/16 [History] Lisinopril 10 mg PO DAILY 12/18/16 [History] Metoprolol Tartrate 25 mg PO BID 12/18/16 [History] Truong/Polymyx B Sulf/Dexameth [Bhaasa-Jisac-Pmibdlw Eye Ointm] 1 applic OP BEDTIME 12/18/16 [History] Omeprazole 40 mg PO DAILY 12/18/16 [History] Salmeterol Xinafoate [Serevent Diskus] 1 puff INH BID 12/18/16 [History] Timolol Maleate [Timoptic 0.25% Ophth Soln] 1 drop EYELF BID 12/18/16 [History] Warfarin [Coumadin] 2.5 mg PO ASDIRECTED 12/18/16 [History] Warfarin [Coumadin] 5 mg PO ASDIRECTED 12/18/16 [History] hydrOXYzine HCl [hydrOXYzine] 25 mg PO Q8H 12/18/16 [History] Amoxicillin/Clavulanate K [Augmentin 875-125 MG] 1 tab PO BID #8 tablet [Rx] Furosemide [Lasix] 40 mg PO DAILY #30 tablet 12/21/16 [Rx] Lactobacillus Rhamnosus GG [Culturelle] 2 cap PO BID #60 cap 12/21/16 [Rx] Referrals: PCP,None [Primary Care Provider] - - Patient Data Vitals - Most Recent: Last Vital Signs Temp 98.4 F 12/21/16 11:19 Pulse 74 12/21/16 11:19 Resp 16 12/21/16 11:19 BP 109/47 L 12/21/16 11:19 Pulse Ox 100 12/21/16 11:19 Weight - Most Recent: 158 lb 12.8 oz I&O - Last 24 hours: Intake & Output 12/20/16 12/21/16 12/21/16 22:59 06:59 14:59 Intake Total 1200 Output Total 2000 1000 Balance -800 -1000 Lab Results - Last 24 hrs: Laboratory Results - last 24 hr 12/21/16 Range/Units 05:40 PT 15.5 H (9.5-12.0) sec INR 1.43 H (0.80-1.20) Med Orders - Current: Current Medications Acetaminophen (Tylenol) 650 mg PO Q4H PRN PRN Reason: Pain (Mild 1-3)/fever Last Admin: 12/21/16 11:30 Dose: 650 mg Albuterol (Proventil Neb Soln) 2.5 mg NEB Q4H PRN PRN Reason: Shortness Of Breath/wheezing Albuterol/Ipratropium (Duoneb 3.0-0.5 Mg/3 Ml) 3 ml NEB QIDRT [facility] Last Admin: 12/21/16 10:54 Dose: 3 ml Amitriptyline HCl (Elavil) 100 mg PO BEDTIME [facility] Last Admin: 12/20/16 20:18 Dose: 100 mg Amoxicillin/Clavulanate Potassium (Augmentin 875 Mg/125 Mg) 1 tab PO BID [facility] Last Admin: 12/21/16 08:34 Dose: 1 tab Arformoterol Tartrate (Brovana) 15 mcg INH BIDRT [facility] Last Admin: 12/21/16 07:22 Dose: 15 mcg Artificial Tears (Natural Balance Tears) 0 ml EYEBOTH QID PRN PRN Reason: Dry Eyes Last Admin: 12/21/16 08:32 Dose: 1 drop Brimonidine Tartrate (Alphagan 0.2% Ophth Soln) 0 ml EYELF BID [facility] Last Admin: 12/21/16 08:38 Dose: 1 drop Docusate Sodium (Colace) 300 mg PO DAILY [facility] Last Admin: 12/21/16 08:34 Dose: 300 mg Furosemide (Lasix) 40 mg PO DAILY [facility] Last Admin: 12/21/16 08:34 Dose: 40 mg Hydroxyzine HCl (Atarax) 25 mg PO Q8H [facility] Last Admin: 12/21/16 08:32 Dose: 25 mg Lactobacillus Rhamnosus (Culturelle) 2 cap PO BID [facility] Last Admin: 12/21/16 08:34 Dose: 2 cap Latanoprost (Xalatan 0.005% Ophth Soln) 0 ml EYELF BEDTIME [facility] Last Admin: 12/20/16 20:19 Dose: 1 drop Levothyroxine Sodium (Levothyroxine) 75 mcg PO ACBREAKFAST [facility] Last Admin: 12/21/16 08:31 Dose: 75 mcg Lisinopril (Prinivil) 10 mg PO DAILY [facility] Last Admin: 12/21/16 08:35 Dose: 10 mg Magnesium Hydroxide (Milk Of Magnesia) 30 ml PO Q12H PRN PRN Reason: Constipation Metoprolol Tartrate (Lopressor) 25 mg PO BID [facility] Last Admin: 12/21/16 08:36 Dose: 25 mg Neomycin/Polymyxin/Dexamethasone (Maxitrol Ophth Oint) 0 gm EYEBOTH BEDTIME [facility] Last Admin: 12/20/16 20:18 Dose: 1 applic Ondansetron HCl (Zofran) 4 mg IV Q4H PRN PRN Reason: Nausea/Vomiting Oxycodone HCl (Oxycodone) 5 mg PO Q4H PRN PRN Reason: Pain (moderate 4-6) Pantoprazole Sodium (Protonix) 40 mg PO ACBREAKFAST [facility] Last Admin: 12/21/16 08:31 Dose: 40 mg Polyethylene Glycol (Miralax) 17 gm PO DAILY PRN PRN Reason: Constipation Sodium Chloride (Saline Flush) 10 ml FLUSH ASDIRECTED PRN PRN Reason: Keep Vein Open Timolol Maleate (Timoptic 0.25% Ophth Soln) 0 ml EYELF BID [facility] Last Admin: 12/21/16 08:36 Dose: 1 drop Discontinued Medications Brimonidine Tartrate (Alphagan 0.2% Ophth Soln) 0 ml EYELF TID [facility] Last Admin: 12/20/16 17:54 Dose: Not Given Ceftriaxone Sodium (Rocephin) Confirm Administered Dose 1 gm .ROUTE .STK-MED ONE Stop: 12/18/16 13:19 Last Admin: 12/18/16 13:28 Dose: Not Given Furosemide (Lasix) 60 mg IVPUSH ONETIME ONE Stop: 12/18/16 11:26 Last Admin: 12/18/16 19:08 Dose: Not Given Furosemide (Lasix) Confirm Administered Dose 40 mg .ROUTE .STK-MED ONE Stop: 12/18/16 11:49 Last Admin: 12/18/16 12:02 Dose: Not Given Furosemide (Lasix) 60 mg IVPUSH ONETIME ONE Stop: 12/18/16 11:50 Last Admin: 12/18/16 11:57 Dose: 60 mg Furosemide (Lasix) 40 mg IVPUSH NOW ONE Stop: 12/20/16 18:01 Last Admin: 12/20/16 17:32 Dose: 40 mg Ceftriaxone Sodium 1 gm/ (Sodium Chloride) 50 mls @ 100 mls/hr IV Q24H [facility] Last Admin: 12/19/16 12:37 Dose: 100 mls/hr Sodium Chloride (Normal Saline) Confirm Administered Dose 50 mls @ as directed .ROUTE .STK-MED ONE Stop: 12/18/16 13:21 Last Admin: 12/18/16 13:28 Dose: Not Given Azithromycin 500 mg/ Sodium (Chloride) 250 mls @ 250 mls/hr IV Q24H [facility] Last Admin: 12/19/16 16:00 Dose: 250 mls/hr Potassium Chloride (Klor-Con M20) 40 meq PO ONETIME ONE Stop: 12/19/16 09:31 Last Admin: 12/19/16 10:09 Dose: 40 meq Sodium Chloride (Saline Flush) 10 ml FLUSH ASDIRECTED PRN PRN Reason: Keep Vein Open Last Admin: 12/18/16 14:29 Dose: 10 ml Warfarin Sodium (Coumadin) 5 mg PO ONETIME ONE Stop: 12/19/16 13:01 Last Admin: 12/19/16 12:54 Dose: 5 mg Warfarin Sodium (Coumadin) 5 mg PO ONETIME ONE Stop: 12/20/16 17:01 Last Admin: 12/20/16 17:32 Dose: 5 mg *Q Meaningful Use (DIS) - VTE *Q VTE Criteria *Q: VTE Pharmacological Contraindications *Q: High INR Value - Stroke *Q Stroke Criteria *Q: - AMI *Q AMI Criteria *Q:
== END 2016-12-21 15:17 | disposition home or self-care (01) | DRG 291 ==
LOC: JP.ED 10:02 → JP.MS 12:56
PROVIDERS: ADMIT Hospitalist; ATTEND Hospitalist
DX: I13.0 Hypertensive heart and chronic kidney disease with heart failure and stage 1 through stage 4 chronic kidney disease, or unspecified chronic kidney disease (principal); J18.9 Pneumonia, unspecified organism; I50.30 Unspecified diastolic (congestive) heart failure; N18.4 Chronic kidney disease, stage 4 (severe); N39.0 Urinary tract infection, site not specified; J44.9 Chronic obstructive pulmonary disease, unspecified; I48.91 Unspecified atrial fibrillation; I25.10 Atherosclerotic heart disease of native coronary artery without angina pectoris; E03.9 Hypothyroidism, unspecified; Z87.891 Personal history of nicotine dependence; Z79.01 Long term (current) use of anticoagulants; Z66 Do not resuscitate; B96.20 Unspecified Escherichia coli [E. coli] as the cause of diseases classified elsewhere; Z87.01 Personal history of pneumonia (recurrent); I35.0 Nonrheumatic aortic (valve) stenosis; I35.1 Nonrheumatic aortic (valve) insufficiency; I34.0 Nonrheumatic mitral (valve) insufficiency; M19.90 Unspecified osteoarthritis, unspecified site; Z86.73 Personal history of transient ischemic attack (TIA), and cerebral infarction without residual deficits; Z87.440 Personal history of urinary (tract) infections; I25.2 Old myocardial infarction; H54.7 Unspecified visual loss; H54.41 Blindness, right eye, normal vision left eye; Z96.649 Presence of unspecified artificial hip joint; Z88.8 Allergy status to other drugs, medicaments and biological substances
CPT/HCPCS: 36415; 71020 ×2; 80053; 81001; 83550; 83605; 83880; 84484; 85025; 85610; 86140; 87040 ×2; 87086; 87088; 87186; 96375; 99285; J1940; J7050; 80048; 83735; 93306; 93306-26; 94640; 94640-76; 96365; 96374; A9270-GY; J0456; J0696; J7605; J7620